=== PATIENT | female | born 1975 | race Two or more races ===

== ENCOUNTER 2021-12-27 14:54 | Inpatient (IN) | payer OTHER, MEDICAID ==
[~2021-12-27] VITALS: Ht 165.1 cm; Wt 226.3 kg
[~2021-12-27 14:54] MED LIST: BUSP5TAB22; LISI20TA28; OMEP-194; PROZAC; WARF2TAB
[2021-12-27 16:08] LABS: Basophils # (auto) 0 10 ^3/uL (0-0.2); Basophils % (auto) 0.4 % (0.0-2.0); Eosinophils # (auto) 0.2 10 ^3/uL (0-0.8); Eosinophils % (auto) 2.8 % (0.0-7.0); Hematocrit 38.2 % (36.0-46.0); Hemoglobin 12.7 g/dL (12.2-16.2); Lymphocytes # (auto) 1.4 10 ^3/uL (0.4-5.4); Lymphocytes % (auto) 19.4 % (10.0-50.0); Mean Corpuscular Hgb Conc. 33.3 g/dL (32.0-36.0); Mean Corpuscular Volume 93.1 fL (80.0-100.0); Monocytes # (auto) 0.6 10 ^3/uL (0-1.3); Monocytes % (auto) 8.7 % (0.0-12.0); Neutrophils % (auto) 68.7 % (37.0-80.0); Nucleated Red Blood Cells % 0.1 %; White Blood Cell 7.2 10^3/uL (4.4-10.8)
[2021-12-27 16:26] LABS: Albumin 3.6 g/dL (3.4-5.0); BUN/Creatinine Ratio 15.4; Potassium 4.1 mmol/L (3.5-5.1)
[2021-12-27 16:27] LABS: INR 2.03 (0.9-1.15); Partial Thromboplastin Time 38.7 sec (23.6-33.0)
[2021-12-27 16:28] LABS: Bilirubin, Total 0.4 mg/dL (0.2-1.0); Total Protein 8.6 g/dL (6.4-8.2)
[2021-12-27 16:36] LABS: Lactic Acid w/Reflex 2.4 mmol/L (0.4-2.0)
[2021-12-27] MEDS ORDERED: FLUCONAZOLE 200MG/100ML 100 ML IV ONE (21:30)
[2021-12-27] MEDS ORDERED: HYDROcodone-ACET 5/325MG TAB PO PRN (21:45)
[2021-12-27] MEDS ORDERED: ACETAMINOPHEN 325 MG TAB PO PRN (21:45)
[2021-12-27] MEDS ORDERED: TEMAZEPAM 15 MG CAP PO PRN (21:45)
[2021-12-27] MEDS ORDERED: ONDANSETRON HCL 4 MG/2 ML VIAL IV PRN (21:45)
[2021-12-27] MEDS: ENALAPRIL MALEATE 10 MG TAB PO SCH (22:24)
[2021-12-28 07:16] LABS: Basophils # (auto) 0.1 10 ^3/uL (0-0.2); Eosinophils # (auto) 0.3 10 ^3/uL (0-0.8); Eosinophils % (auto) 4.1 % (0.0-7.0); Hematocrit 35.1 % (36.0-46.0); Hemoglobin 11.9 g/dL (12.2-16.2); Lymphocytes # (auto) 1.7 10 ^3/uL (0.4-5.4); Lymphocytes % (auto) 24.3 % (10.0-50.0); Mean Corpuscular Hemoglobin 31.9 pg (28.0-32.0); Mean Corpuscular Hgb Conc. 33.8 g/dL (32.0-36.0); Mean Corpuscular Volume 94.4 fL (80.0-100.0); Monocytes # (auto) 0.6 10 ^3/uL (0-1.3); Monocytes % (auto) 9.4 % (0.0-12.0); Neutrophils # (auto) 4.2 10 ^3/uL (1.6-8.6); Neutrophils % (auto) 61.2 % (37.0-80.0); Nucleated Red Blood Cells % 0.1 %; Red Blood Cells 3.72 10^6/uL (4.0-5.20); Red Cell Distribution Width 13.7 % (11.8-14.3); White Blood Cell 6.9 10^3/uL (4.4-10.8)
[2021-12-28 07:29] LABS: INR 2.08 (0.9-1.15); Partial Thromboplastin Time 37.6 sec (23.6-33.0)
[2021-12-28 07:31] LABS: Alanine Aminotransferase 16 U/L (13-56); Anion Gap 7 (5-15); Aspartate Aminotransferase 28 U/L (15-37); BUN/Creatinine Ratio 14.7; Blood Urea Nitrogen 10 mg/dL (7-18); Calcium 8.7 mg/dL (8.5-10.1); Carbon Dioxide 22 mmol/L (21-32); Chloride 108 mmol/L (98-107); GFR African American 120 mL/min; GFR Non-African American 99 mL/min; Glucose 89 mg/dL (74-106); Sodium 137 mmol/L (136-145)
[2021-12-28 07:35] LABS: Alkaline Phosphatase 77 U/L (45-117); Bilirubin, Total 0.4 mg/dL (0.2-1.0); Total Protein 7.6 g/dL (6.4-8.2)
[2021-12-28 09:06] LABS: Urine Bacteria FEW /hpf (None Seen); Urine Blood 2+ /uL (Negative); Urine Mucus FEW (None Seen); Urine Specific Gravity 1.025 (1.001-1.035); Urine WBC 13 /hpf (0 - 5)
[2021-12-28] MEDS: ENALAPRIL MALEATE 10 MG TAB PO SCH ×2 (09:50→21:47)
[2021-12-28] MEDS: PANTOPRAZOLE 40 MG TAB PO SCH (09:50)
[2021-12-28] MEDS: FLUCONAZOLE 200MG/100ML 100 ML IV SCH (09:50)
[2021-12-28] MEDS: FUROSEMIDE 20 MG TAB PO SCH (09:50)
[2021-12-28 15:15] VITALS: BP 112/52
[2021-12-28 16:14] LABS: INR 2.03 (0.9-1.15); Partial Thromboplastin Time 39.1 sec (23.6-33.0)
[2021-12-28] MEDS ORDERED: WARFARIN SODIUM 2 MG TAB PO ONE (17:00)
[2021-12-28 22:00] VITALS: BP 126/66
[2021-12-28 22:07] VITALS: BP 126/66
[2021-12-28] MEDS ORDERED: VANCOMYCIN PER PHARMACY 0 MG IV SCH (23:00)
[2021-12-28] MEDS ORDERED: VANCOMYCIN 1,500 MG in D5W 5% 250 ML IV ONE (23:30)
[2021-12-28] MEDS ORDERED: VANCOMYCIN 1GM/250ML 500 ML IV ONE (23:45)
[2021-12-29 05:00] VITALS: BP 125/33
[2021-12-29 06:15] LABS: INR 2.16 (0.9-1.15); Partial Thromboplastin Time 39.9 sec (23.6-33.0)
[2021-12-29 09:00] VITALS: BP 125/44
[2021-12-29 09:21] LABS: Calcium 8.4 mg/dL (8.5-10.1); Potassium 3.8 mmol/L (3.5-5.1)
[2021-12-29 09:24] LABS: BUN/Creatinine Ratio 18.5
[2021-12-29] MEDS: ENALAPRIL MALEATE 10 MG TAB PO SCH (09:44)
[2021-12-29] MEDS: FLUCONAZOLE 200MG/100ML 100 ML IV SCH (09:45)
[2021-12-29] MEDS: FUROSEMIDE 20 MG TAB PO SCH (09:45)
[2021-12-29] MEDS: PANTOPRAZOLE 40 MG TAB PO SCH (09:45)
[2021-12-29] MEDS ORDERED: FLUCONAZOLE 100 MG TAB PO ONE (10:15)
[2021-12-29] MEDS ORDERED: FLUC200T35 PO (10:21)
[2021-12-29] MEDS ORDERED: CLOT1CRE56 TOP (10:21)
[2021-12-29] MEDS ORDERED: VANCOMYCIN 1GM/250ML 250 ML IV SCH (14:00)
[2021-12-29] MEDS ORDERED: WARFARIN SODIUM 5 MG TAB PO ONE (17:00)
== END 2021-12-29 14:10 | disposition home or self-care (01) | DRG 603 ==
LOC: ER 14:54 → OVERFLOW 21:43 → WEST WING 12-28 14:34
PROVIDERS: ADMIT Nurse Practitioner; ATTEND Family Medicine
PROC: 5A09357 Assistance with Respiratory Ventilation, Less than 24 Consecutive Hours, Continuous Positive Airway Pressure (ICD-10-PCS; principal; 2021-12-28)
DX: L03.311 Cellulitis of abdominal wall (principal); Z68.45 Body mass index [BMI] 70 or greater, adult; D68.9 Coagulation defect, unspecified; B37.2 Candidiasis of skin and nail; E66.01 Morbid (severe) obesity due to excess calories; I10 Essential (primary) hypertension; Z20.822 Contact with and (suspected) exposure to COVID-19; F32.A Depression, unspecified; F41.9 Anxiety disorder, unspecified; K21.9 Gastro-esophageal reflux disease without esophagitis; Z79.01 Long term (current) use of anticoagulants; Z95.2 Presence of prosthetic heart valve
CPT/HCPCS: 36415; 80048; 80053; 81001; 83605; 85025; 85610; 85730; 87040; 87077; 87186; 87205; 96365; 96366; G0378; J1450; J7060

== ENCOUNTER 2022-03-18 15:46 | Inpatient (IN) | payer OTHER, MEDICAID ==
[~2022-03-18] VITALS: Ht 165.1 cm; Wt 249.0 kg
[~2022-03-18 15:46] MED LIST changes: +CLOT1CRE56 TOP; +FLUC200T35 PO
[2022-03-18 17:10] LABS: Basophils # (auto) 0.1 10 ^3/uL (0-0.2); Basophils % (auto) 0.8 % (0.0-2.0); Eosinophils # (auto) 0.2 10 ^3/uL (0-0.8); Eosinophils % (auto) 1.5 % (0.0-7.0); Hematocrit 39.5 % (36.0-46.0); Hemoglobin 12.9 g/dL (12.2-16.2); Lymphocytes # (auto) 1.7 10 ^3/uL (0.4-5.4); Lymphocytes % (auto) 15.6 % (10.0-50.0); Mean Corpuscular Hemoglobin 30.5 pg (28.0-32.0); Mean Corpuscular Hgb Conc. 32.8 g/dL (32.0-36.0); Mean Corpuscular Volume 93.1 fL (80.0-100.0); Monocytes # (auto) 0.8 10 ^3/uL (0-1.3); Monocytes % (auto) 7.3 % (0.0-12.0); Neutrophils # (auto) 7.9 10 ^3/uL (1.6-8.6); Neutrophils % (auto) 74.8 % (37.0-80.0); Nucleated Red Blood Cells % 0.1 %; Red Blood Cells 4.24 10^6/uL (4.0-5.20); Red Cell Distribution Width 14.8 % (11.8-14.3); White Blood Cell 10.6 10^3/uL (4.4-10.8)
[2022-03-18 17:18] LABS: Albumin 3.5 g/dL (3.4-5.0); Calcium 8.8 mg/dL (8.5-10.1); Potassium 3.8 mmol/L (3.5-5.1)
[2022-03-18 17:21] LABS: Bilirubin, Total 0.5 mg/dL (0.2-1.0)
[2022-03-19] MEDS ORDERED: ONDANSETRON HCL 4 MG/2 ML VIAL IV PRN (03:00)
[2022-03-19 03:48] LABS: INR 1.63 (0.9-1.15); Partial Thromboplastin Time 33.6 sec (24.6-33.4)
[2022-03-19] MEDS: levoFLOXacin 500MG 100 ML IV SCH (10:06)
[2022-03-19] MEDS: METOPROLOL SUCCINATE XL 50 MG TAB PO SCH (10:07)
[2022-03-19] MEDS: LISINOPRIL 10 MG TAB PO SCH (10:10)
[2022-03-19] MEDS: PANTOPRAZOLE 40 MG TAB PO SCH (10:10)
[2022-03-19] MEDS: FUROSEMIDE 20 MG TAB PO SCH (10:11)
[2022-03-19] MEDS: HYDROcodone-ACET 5/325MG TAB PO PRN (11:13)
[2022-03-19] MEDS ORDERED: WARFARIN SODIUM 2 MG TAB PO ONE (15:00)
[2022-03-19 17:26] LABS: Urine Bacteria MANY /hpf (None Seen); Urine Blood Negative /uL (Negative); Urine Hyaline Cast FEW /lpf (0 - 2); Urine Mucus FEW (None Seen); Urine Specific Gravity 1.025 (1.001-1.035); Urine WBC 12 /hpf (0 - 5)
[2022-03-19 21:56] VITALS: BP 125/54
[2022-03-19] MEDS ORDERED: PANT40T PO (22:19)
[2022-03-19] MEDS ORDERED: LORA-483 PO (22:19)
[2022-03-19] MEDS ORDERED: HYDR-4072 (22:19)
[2022-03-19] MEDS ORDERED: ENAL10TA13 PO (22:20)
[2022-03-19] MEDS ORDERED: POTA1TAB4 (22:20)
[2022-03-19] MEDS ORDERED: FUR20T PO (22:20)
[2022-03-19] MEDS ORDERED: METO25TA93 PO (22:20)
[2022-03-19] MEDS ORDERED: ZOLP10TA6 PO (22:20)
[2022-03-20 05:00] VITALS: BP 118/46
[2022-03-20 05:45] LABS: INR 1.54 (0.9-1.15); Partial Thromboplastin Time 34.6 sec (24.6-33.4)
[2022-03-20 05:53] LABS: Basophils # (auto) 0 10 ^3/uL (0-0.2); Basophils % (auto) 0.4 % (0.0-2.0); Eosinophils # (auto) 0.2 10 ^3/uL (0-0.8); Eosinophils % (auto) 2.9 % (0.0-7.0); Hematocrit 33.8 % (36.0-46.0); Hemoglobin 11.2 g/dL (12.2-16.2); Lymphocytes # (auto) 1.4 10 ^3/uL (0.4-5.4); Lymphocytes % (auto) 19.9 % (10.0-50.0); Mean Corpuscular Hgb Conc. 33.2 g/dL (32.0-36.0); Mean Corpuscular Volume 93.4 fL (80.0-100.0); Monocytes # (auto) 0.6 10 ^3/uL (0-1.3); Monocytes % (auto) 9.1 % (0.0-12.0); Neutrophils # (auto) 4.8 10 ^3/uL (1.6-8.6); Neutrophils % (auto) 67.7 % (37.0-80.0); Nucleated Red Blood Cells % 0.1 %; Red Blood Cells 3.62 10^6/uL (4.0-5.20); Red Cell Distribution Width 15.1 % (11.8-14.3); White Blood Cell 7.1 10^3/uL (4.4-10.8)
[2022-03-20 05:54] LABS: Albumin 2.8 g/dL (3.4-5.0); BUN/Creatinine Ratio 18.4; Calcium 8.1 mg/dL (8.5-10.1)
[2022-03-20 05:57] LABS: Bilirubin, Total 0.5 mg/dL (0.2-1.0); Total Protein 6.6 g/dL (6.4-8.2)
[2022-03-20 09:00] VITALS: BP 119/42
[2022-03-20] MEDS: levoFLOXacin 500MG 100 ML IV SCH (10:25)
[2022-03-20] MEDS: PANTOPRAZOLE 40 MG TAB PO SCH (10:26)
[2022-03-20] MEDS: FUROSEMIDE 20 MG TAB PO SCH (10:26)
[2022-03-20] MEDS: METOPROLOL SUCCINATE XL 50 MG TAB PO SCH (10:27)
[2022-03-20] MEDS: LISINOPRIL 10 MG TAB PO SCH (10:27)
[2022-03-20] MEDS: HYDROcodone-ACET 5/325MG TAB PO PRN (10:36)
[2022-03-20 13:00] VITALS: BP 121/53
[2022-03-20] MEDS ORDERED: WARFARIN SODIUM 10 MG TAB PO ONE (17:00)
[2022-03-20 19:05] VITALS: BP 121/53
[2022-03-20 22:00] VITALS: BP 120/41
[2022-03-21 05:00] VITALS: BP 130/55
[2022-03-21 07:08] LABS: Basophils # (auto) 0 10 ^3/uL (0-0.2); Basophils % (auto) 0.6 % (0.0-2.0); Eosinophils # (auto) 0.3 10 ^3/uL (0-0.8); Eosinophils % (auto) 3.7 % (0.0-7.0); Hematocrit 33.1 % (36.0-46.0); Hemoglobin 11.2 g/dL (12.2-16.2); Lymphocytes # (auto) 1.3 10 ^3/uL (0.4-5.4); Lymphocytes % (auto) 17.8 % (10.0-50.0); Mean Corpuscular Hemoglobin 31.7 pg (28.0-32.0); Mean Corpuscular Hgb Conc. 33.9 g/dL (32.0-36.0); Mean Corpuscular Volume 93.4 fL (80.0-100.0); Monocytes # (auto) 0.7 10 ^3/uL (0-1.3); Monocytes % (auto) 10.2 % (0.0-12.0); Neutrophils # (auto) 4.8 10 ^3/uL (1.6-8.6); Neutrophils % (auto) 67.7 % (37.0-80.0); Nucleated Red Blood Cells % 0.1 %; Red Blood Cells 3.54 10^6/uL (4.0-5.20); Red Cell Distribution Width 15.1 % (11.8-14.3); White Blood Cell 7.2 10^3/uL (4.4-10.8)
[2022-03-21 07:22] LABS: INR 1.3 (0.9-1.15); Partial Thromboplastin Time 33.5 sec (24.6-33.4)
[2022-03-21 07:27] LABS: BUN/Creatinine Ratio 23.7
[2022-03-21 08:49] VITALS: BP 137/51
[2022-03-21] MEDS: FUROSEMIDE 20 MG TAB PO SCH (09:21)
[2022-03-21] MEDS: levoFLOXacin 500MG 100 ML IV SCH (09:21)
[2022-03-21] MEDS: METOPROLOL SUCCINATE XL 50 MG TAB PO SCH (09:22)
[2022-03-21] MEDS: PANTOPRAZOLE 40 MG TAB PO SCH (09:22)
[2022-03-21] MEDS: LISINOPRIL 10 MG TAB PO SCH (09:23)
[2022-03-21] MEDS: HYDROcodone-ACET 5/325MG TAB PO PRN (09:23)
[2022-03-21 13:00] VITALS: BP 135/57
[2022-03-21 16:50] VITALS: BP 135/61
[2022-03-21] MEDS ORDERED: WARFARIN SODIUM 10 MG TAB PO ONE (17:00)
[2022-03-21 22:00] VITALS: BP 147/60
[2022-03-21] MEDS: ACETAMINOPHEN 325 MG TAB PO PRN (22:02)
[2022-03-22 05:00] VITALS: BP 143/51
[2022-03-22 07:44] LABS: INR 1.49 (0.9-1.15); Partial Thromboplastin Time 35.5 sec (24.6-33.4)
[2022-03-22 09:00] VITALS: BP 140/57
[2022-03-22] MEDS: levoFLOXacin 500MG 100 ML IV SCH (09:35)
[2022-03-22] MEDS: PANTOPRAZOLE 40 MG TAB PO SCH (09:36)
[2022-03-22] MEDS: FUROSEMIDE 20 MG TAB PO SCH (09:37)
[2022-03-22] MEDS: LISINOPRIL 10 MG TAB PO SCH (09:37)
[2022-03-22] MEDS: METOPROLOL SUCCINATE XL 50 MG TAB PO SCH (09:38)
[2022-03-22] MEDS: HYDROcodone-ACET 5/325MG TAB PO PRN (09:39)
[2022-03-22 13:00] VITALS: BP 149/49
[2022-03-22 16:39] VITALS: BP 136/58
[2022-03-22] MEDS ORDERED: WARFARIN SODIUM 10 MG TAB PO ONE (17:00)
[2022-03-22] MEDS: ACETAMINOPHEN 325 MG TAB PO PRN (21:49)
[2022-03-22 22:00] VITALS: BP 153/57
[2022-03-22] MEDS: LINEZOLID 600MG/300ML 300 ML IV SCH (23:58)
[2022-03-23 05:00] VITALS: BP 137/55
[2022-03-23 07:29] LABS: Basophils # (auto) 0 10 ^3/uL (0-0.2); Basophils % (auto) 0.5 % (0.0-2.0); Eosinophils # (auto) 0.3 10 ^3/uL (0-0.8); Eosinophils % (auto) 4.1 % (0.0-7.0); Hemoglobin 11.5 g/dL (12.2-16.2); Lymphocytes # (auto) 1.3 10 ^3/uL (0.4-5.4); Lymphocytes % (auto) 20.7 % (10.0-50.0); Mean Corpuscular Hemoglobin 31.2 pg (28.0-32.0); Mean Corpuscular Hgb Conc. 32.9 g/dL (32.0-36.0); Mean Corpuscular Volume 94.6 fL (80.0-100.0); Monocytes % (auto) 14.9 % (0.0-12.0); Neutrophils # (auto) 3.9 10 ^3/uL (1.6-8.6); Neutrophils % (auto) 59.8 % (37.0-80.0); Red Blood Cells 3.71 10^6/uL (4.0-5.20); Red Cell Distribution Width 14.9 % (11.8-14.3); White Blood Cell 6.5 10^3/uL (4.4-10.8)
[2022-03-23 08:07] LABS: Anion Gap 6 (5-15); BUN/Creatinine Ratio 20.3; Blood Urea Nitrogen 12 mg/dL (7-18); Calcium 8.2 mg/dL (8.5-10.1); Carbon Dioxide 22 mmol/L (21-32); Chloride 105 mmol/L (98-107); GFR African American 141 mL/min; GFR Non-African American 117 mL/min; Glucose 87 mg/dL (74-106); Sodium 133 mmol/L (136-145)
[2022-03-23] MEDS: HYDROcodone-ACET 5/325MG TAB PO PRN (08:51)
[2022-03-23 08:56] VITALS: BP 138/59
[2022-03-23] MEDS ORDERED: LEVO750T64 PO (10:35)
[2022-03-23] MEDS ORDERED: LINE1TAB6 PO (10:35)
[2022-03-23] MEDS: levoFLOXacin 500MG 100 ML IV SCH (10:58)
[2022-03-23] MEDS: FUROSEMIDE 20 MG TAB PO SCH (10:58)
[2022-03-23] MEDS: PANTOPRAZOLE 40 MG TAB PO SCH (10:58)
[2022-03-23] MEDS: LISINOPRIL 10 MG TAB PO SCH (10:59)
[2022-03-23] MEDS: METOPROLOL SUCCINATE XL 50 MG TAB PO SCH (10:59)
[2022-03-23] MEDS: LINEZOLID 600MG/300ML 300 ML IV SCH ×2 (11:01→22:04)
[2022-03-23 11:35] LABS: INR 1.77 (0.9-1.15)
[2022-03-23 13:00] VITALS: BP 134/59
[2022-03-23 17:00] VITALS: BP 125/55
[2022-03-23] MEDS ORDERED: WARFARIN SODIUM 10 MG TAB PO ONE (17:00)
[2022-03-23] MEDS: ACETAMINOPHEN 325 MG TAB PO PRN (20:50)
[2022-03-23 21:38] VITALS: BP 125/55
[2022-03-23 22:00] VITALS: BP 119/51
[2022-03-24 05:17] VITALS: BP 135/49
[2022-03-24 09:09] VITALS: BP 145/55
[2022-03-24] MEDS: METOPROLOL SUCCINATE XL 50 MG TAB PO SCH (10:00)
[2022-03-24] MEDS: LINEZOLID 600MG/300ML 300 ML IV SCH (10:39)
[2022-03-24] MEDS: levoFLOXacin 500MG 100 ML IV SCH (10:39)
[2022-03-24] MEDS: FUROSEMIDE 20 MG TAB PO SCH (10:40)
[2022-03-24] MEDS: PANTOPRAZOLE 40 MG TAB PO SCH (10:40)
[2022-03-24] MEDS: LISINOPRIL 10 MG TAB PO SCH (10:41)
[2022-03-24] MEDS: HYDROcodone-ACET 5/325MG TAB PO PRN (10:42)
[2022-03-24 13:00] VITALS: BP 163/89
[2022-03-24 13:17] LABS: INR 2.11 (0.9-1.15); Partial Thromboplastin Time 40.2 sec (24.6-33.4)
[2022-03-24 15:23] VITALS: BP 163/89
[2022-03-24 15:31] VITALS: BP 142/55
[2022-03-24] MEDS ORDERED: WARFARIN SODIUM 5 MG TAB PO ONE (17:00)
== END 2022-03-24 16:10 | disposition home health service (06) | DRG 605 ==
LOC: ER 15:46 → OVERFLOW 03-19 03:01 → WEST WING 03-19 21:10
PROVIDERS: ADMIT Nurse Practitioner; ATTEND Internal Medicine Pulmonary Disease
PROC: 5A09357 Assistance with Respiratory Ventilation, Less than 24 Consecutive Hours, Continuous Positive Airway Pressure (ICD-10-PCS; principal; 2022-03-20)
PROC: 5A09357 Assistance with Respiratory Ventilation, Less than 24 Consecutive Hours, Continuous Positive Airway Pressure (ICD-10-PCS; 2022-03-21)
PROC: 5A09357 Assistance with Respiratory Ventilation, Less than 24 Consecutive Hours, Continuous Positive Airway Pressure (ICD-10-PCS; 2022-03-22)
PROC: 5A09357 Assistance with Respiratory Ventilation, Less than 24 Consecutive Hours, Continuous Positive Airway Pressure (ICD-10-PCS; 2022-03-23)
DX: S81.801A Unspecified open wound, right lower leg, initial encounter (principal); L03.311 Cellulitis of abdominal wall; Z68.45 Body mass index [BMI] 70 or greater, adult; L03.115 Cellulitis of right lower limb; I10 Essential (primary) hypertension; E66.01 Morbid (severe) obesity due to excess calories; B37.2 Candidiasis of skin and nail; F32.A Depression, unspecified; G47.30 Sleep apnea, unspecified; X58.XXXA Exposure to other specified factors, initial encounter; Z20.822 Contact with and (suspected) exposure to COVID-19; B96.20 Unspecified Escherichia coli [E. coli] as the cause of diseases classified elsewhere; B95.5 Unspecified streptococcus as the cause of diseases classified elsewhere; F41.9 Anxiety disorder, unspecified; K21.9 Gastro-esophageal reflux disease without esophagitis; Z88.1 Allergy status to other antibiotic agents; Z95.1 Presence of aortocoronary bypass graft; Z79.01 Long term (current) use of anticoagulants; Z98.891 History of uterine scar from previous surgery; Y93.9 Activity, unspecified; Y92.89 Other specified places as the place of occurrence of the external cause; Y99.8 Other external cause status
CPT/HCPCS: 36415; 80048; 80053; 81001; 85025; 85610; 85652; 85730; 87077; 87186; 87205; 94660; G0378; J1956